=== PATIENT | female | born 1960 | race Asian ===

== ENCOUNTER 2016-12-07 10:19 | Emergency (ER) | payer MEDICAID ==
[~2016-12-07] VITALS: Ht 157.5 cm; Wt 49.9 kg
[2016-12-07 11:22] VITALS: BP 128/68
== END 2016-12-07 11:36 | disposition home or self-care (01) ==
LOC: ER 10:19
DX: S39.012A Strain of muscle, fascia and tendon of lower back, initial encounter (principal); X58.XXXA Exposure to other specified factors, initial encounter; Y93.89 Activity, other specified; Y92.89 Other specified places as the place of occurrence of the external cause; Y99.8 Other external cause status

== ENCOUNTER 2017-02-17 08:11 | Emergency (ER) | payer MEDICAID ==
[~2017-02-17] VITALS: Ht 157.5 cm; Wt 48.5 kg
[2017-02-17 09:13] LABS: Basophils # (auto) 0 uL; Basophils % (auto) 0.5 % (0.0-2.0); Eosinophils # (auto) 0.3 uL; Eosinophils % (auto) 4.6 % (0.0-7.0); Hematocrit 38.8 % (36.0-46.0); Hemoglobin 13.4 g/dL (12.2-16.2); Lymphocytes # (auto) 1.6 uL; Lymphocytes % (auto) 27.9 % (10.0-50.0); Mean Corpuscular Hemoglobin 30.1 pg (28.0-32.0); Mean Corpuscular Hgb Conc. 34.5 g/dL (32.0-36.0); Mean Corpuscular Volume 87.2 fL (80.0-100.0); Mean Platelet Volume 9.1 fL (7.4-10.4); Monocytes # (auto) 0.3 uL; Monocytes % (auto) 5.1 % (0.0-12.0); Neutrophils # (auto) 3.6 uL; Neutrophils % (auto) 61.9 % (37.0-80.0); Platelet Count (auto) 267 10^3/uL (140-450); Red Cell Distribution Width 12.7 % (11.6-16.0); White Blood Cell 5.8 10^3/uL (4.4-10.8)
[2017-02-17 09:22] LABS: Albumin 4.1 g/dL (3.4-5.0); Alkaline Phosphatase 74 U/L (45-117); Anion Gap 7 (5-15); Aspartate Aminotransferase 14 U/L (15-37); BUN/Creatinine Ratio 15.3; Bilirubin, Total 0.5 mg/dL (0.2-1.0); Blood Urea Nitrogen 13 mg/dL (7-18); Calcium 9.2 mg/dL (8.5-10.1); Carbon Dioxide 29 mmol/L (21-32); Chloride 106 mmol/L (98-107); GFR African American 89 mL/min; GFR Non-African American 73 mL/min; Glucose 98 mg/dL (74-106); Magnesium 2.7 mg/dL (1.6-2.6); Potassium 3.8 mmol/L (3.5-5.1); Sodium 142 mmol/L (136-145); Total Protein 8.3 g/dL (6.4-8.2)
[2017-02-17] MEDS ORDERED: ASPirin 81 mg TAB ONE (09:55)
[2017-02-17] MEDS ORDERED: ASPirin 81 mg TAB PO ONE (10:00)
[2017-02-17 11:08] VITALS: BP 121/79
== END 2017-02-17 12:04 | disposition home or self-care (01) ==
LOC: ER 08:22
DX: R07.89 Other chest pain (principal); F41.9 Anxiety disorder, unspecified; Z79.82 Long term (current) use of aspirin
CPT/HCPCS: 36415; 71020; 80053; 83735; 84484; 85025; 93005

== ENCOUNTER 2017-02-23 00:20 | Emergency (ER) | payer MEDICAID ==
[~2017-02-23] VITALS: Ht 157.5 cm; Wt 48.5 kg
[2017-02-23 04:18] LABS: Urine Bilirubin Negative (Negative); Urine Color Yellow (Yellow); Urine Glucose Normal (Normal); Urine Ketone Negative (Negative); Urine Nitrite Negative (Negative); Urine RBC 24 /hpf (0 - 4); Urine Squamous Epithelial Cell FEW /hpf (<5); Urine Urobilinogen Normal (Negative); Urine WBC Clumps PRESENT /hpf (None Seen)
[2017-02-23 04:19] LABS: Urine Blood 3+ /uL (Negative)
[2017-02-23 04:23] LABS: Basophils # (auto) 0 uL; Basophils % (auto) 0.3 % (0.0-2.0); Eosinophils # (auto) 0.3 uL; Eosinophils % (auto) 4.1 % (0.0-7.0); Hematocrit 38.6 % (36.0-46.0); Hemoglobin 13.2 g/dL (12.2-16.2); Lymphocytes % (auto) 24.1 % (10.0-50.0); Mean Corpuscular Hemoglobin 30.1 pg (28.0-32.0); Mean Corpuscular Hgb Conc. 34.2 g/dL (32.0-36.0); Mean Corpuscular Volume 88.2 fL (80.0-100.0); Mean Platelet Volume 9.3 fL (7.4-10.4); Monocytes # (auto) 0.4 uL; Monocytes % (auto) 5.2 % (0.0-12.0); Neutrophils # (auto) 5.5 uL; Neutrophils % (auto) 66.3 % (37.0-80.0); Platelet Count (auto) 272 10^3/uL (140-450); Red Cell Distribution Width 12.6 % (11.6-16.0); White Blood Cell 8.4 10^3/uL (4.4-10.8)
[2017-02-23 04:26] LABS: INR 0.95 (0.9-1.15); Partial Thromboplastin Time 27.9 sec (22.64-33.71); Prothrombin Time 10.3 sec (9.37-12.3)
[2017-02-23 04:35] LABS: BUN/Creatinine Ratio 14.8; Calcium 9.1 mg/dL (8.5-10.1)
[2017-02-23 04:41] LABS: Bilirubin, Total 0.4 mg/dL (0.2-1.0); Total Protein 8.3 g/dL (6.4-8.2)
== END 2017-02-23 06:05 | disposition home or self-care (01) ==
LOC: ER 00:20
DX: N39.0 Urinary tract infection, site not specified (principal)
CPT/HCPCS: 36415; 80053; 81001; 81025; 85025; 85610; 85730